=== PATIENT | female | born 1985 | race Two or more races ===

== ENCOUNTER 2016-07-03 05:12 | Emergency (ER) | payer MEDICAID ==
[2016-07-03] MEDS ORDERED: IBUPROFEN 800 MG TABLET ONE (05:41)
[2016-07-03] MEDS ORDERED: CIPROFLOXACIN 500 MG TABLET ONE (05:41)
[2016-07-03 05:49] LABS: URINE BILIRUBIN NEGATIVE (NEGATIVE); URINE BLOOD TRACE (NEGATIVE); URINE GLUCOSE (UA) NEGATIVE (NEGATIVE); URINE LEUKOCYTE ESTERASE 1+ (NEGATIVE); URINE PROTEIN NEGATIVE (NEGATIVE); URINE UROBILINOGEN NORMAL (0-1 mg/dl)
[2016-07-03 05:53] LABS: HCG,QUALITATIVE URINE NEGATIVE
[2016-07-03 05:57] LABS: URINE APPEARANCE CLEAR; URINE COLOR YELLOW; URINE NITRITE NOT VALID (NEGATIVE)
[2016-07-03 05:58] LABS: URINE BACTERIA FEW; URINE EPITHELIAL CELLS RARE /hpf; URINE RBC 0 /hpf
== END 2016-07-03 06:05 | disposition home or self-care (01) ==
LOC: ED 05:12
DX: N39.0 Urinary tract infection, site not specified (principal)
CPT/HCPCS: 81025; 87086; 81001; 99283 ×2; A9270 ×2